=== PATIENT | male | born 2005 | race African-American/Black ===

== ENCOUNTER 2024-11-08 09:07 | Inpatient (IN) | payer OTHER ==
[~2024-11-08] VITALS: Ht 175.3 cm; Wt 57.2 kg
[2024-11-08 09:48] LABS: HEMATOCRIT 44.7 % (42.0-52.0); HEMOGLOBIN 15.3 g/dl (13.5-17.5); MEAN CORPUSCULAR HEMOGLOBIN 31.1 pg (27.0-33.0); MEAN CORPUSCULAR HGB CONC 34.2 g/dl (32.0-36.5); MEAN CORPUSCULAR VOLUME 90.9 fl (80.0-96.0); PLATELET COUNT, AUTOMATED 276 10^3/uL (150-450); RED BLOOD COUNT 4.92 10^6/uL (4.30-6.10); WHITE BLOOD COUNT 3.9 10^3/uL (4.0-10.0)
[2024-11-08 10:24] LABS: ETHYL ALCOHOL (ETHANOL) 0.004 % (0.000-0.010)
[2024-11-08 10:26] LABS: ALBUMIN 4.5 G/DL (3.2-5.2); ALKALINE PHOSPHATASE 77 U/L (40-129); ALT/SGPT 14 U/L (7.0-40); AST/SGOT 28 U/L (<34); BILIRUBIN,DIRECT 0.1 MG/DL (<0.4); BILIRUBIN,TOTAL 0.5 MG/DL (0.3-1.2); BLOOD UREA NITROGEN 15 MG/DL (9-23); CALCIUM LEVEL 9.2 MG/DL (8.5-10.1); CARBON DIOXIDE LEVEL 22 MMOL/L (20-31); CHLORIDE LEVEL 106 MMOL/L (98-107); CREATININE FOR GFR 1.09 MG/DL (0.70-1.30); GLOMERULAR FILTRATION RATE > 90.0 (>60); GLUCOSE, FASTING 106 MG/DL (60-100); POTASSIUM SERUM 5.2 MMOL/L (3.5-5.1); SALICYLATE LEVEL < 3.0 MG/DL (<30); SODIUM LEVEL 139 MMOL/L (136-145); TOTAL PROTEIN 7.6 G/DL (5.7-8.2)
[2024-11-08 10:28] LABS: THYROID STIMULATING HORMONE 0.987 uIU/ML (0.48-4.17)
[2024-11-08 11:29] LABS: AMPHETAMINES LEVEL URINE NEGATIVE (NEGATIVE); BARBITURATES URINE NEGATIVE (NEGATIVE); BENZODIAZEPINES URINE NEGATIVE (NEGATIVE); COCAINE METABOLITE URINE NEGATIVE (NEGATIVE); METHADONE URINE NEGATIVE (NEGATIVE); OPIATES URINE NEGATIVE (NEGATIVE)
[2024-11-08 11:30] LABS: CANNABINOIDS URINE NEGATIVE (NEGATIVE); PHENCYCLIDINE URINE NEGATIVE (NEGATIVE)
[2024-11-08] MEDS ORDERED: HOME MED LIST COMPLETE! XX SCH (11:55)
[2024-11-08] MEDS ORDERED: LORazepam 1 MG TAB PO PRN (12:30)
[2024-11-08] MEDS ORDERED: ACETAMINOPHEN 325 MG TAB PO PRN (12:30)
[2024-11-08] MEDS ORDERED: MAALOX 30 ML SUSP *UDC PO PRN (12:30)
[2024-11-08] MEDS ORDERED: diphenhydrAMINE 25MG CAP PO PRN (12:30)
[2024-11-08] MEDS ORDERED: OLANZapine 5 MG TAB PO PRN (12:30)
[2024-11-08] MEDS ORDERED: MOM 30ML SUSPENSION UDC PO PRN (12:30)
[2024-11-08] MEDS ORDERED: traZODone 50 MG TAB PO PRN (12:30)
[2024-11-08] MEDS: NICOTINE 14 MG/24 HR TRANSDERMAL TD SCH (16:50)
[2024-11-08 18:27] VITALS: BP 132/72; TEMP 97.8; O2SAT 100
[2024-11-09 06:47] VITALS: BP 128/65; TEMP 98; O2SAT 100
[2024-11-09] MEDS: ESCITALOPRAM OXALATE 5 MG PO SCH (14:03)
[2024-11-09 14:55] VITALS: BP 142/82; TEMP 97.6; O2SAT 100
[2024-11-10 06:28] VITALS: BP 110/52; TEMP 98.4; O2SAT 98
[2024-11-10 16:09] VITALS: BP 131/70; TEMP 97.2; O2SAT 100
[2024-11-11 06:56] VITALS: BP 124/59; TEMP 98; O2SAT 99
[2024-11-11] MEDS: ESCITALOPRAM OXALATE 10 MG TAB PO SCH (09:06)
[2024-11-11 15:49] VITALS: BP 132/71; TEMP 97.5; O2SAT 100
[2024-11-12 06:49] VITALS: BP 110/55; TEMP 97.5; O2SAT 99
[2024-11-12] MEDS ORDERED: LEXA1TAB PO (11:54)
== END 2024-11-12 14:00 | disposition home or self-care (01) | DRG 885 ==
LOC: EDBD 09:07 → M ED 09:07 → M ED INP 12:29 → M PSY 14:46
PROVIDERS: ADMIT Internal Medicine; ATTEND Internal Medicine
DX: F33.1 Major depressive disorder, recurrent, moderate (principal); R45.851 Suicidal ideations; F41.1 Generalized anxiety disorder; Z88.6 Allergy status to analgesic agent; E87.5 Hyperkalemia

== ENCOUNTER → 2025-01-17 | Outpatient (CLI) | payer OTHER ==
[~2025-01-17] MED LIST: ALL10TAB3 PO; BREAMIS10 MC; CETI10CH PO; EPIN0.3I11 SC; IBUP200T46 PO; ISOVUE-300 61% 100 ML VIAL As Ordered ONE; LEXA1TAB PO; LEXA1TAB2 PO; LIDOCAINE 1% MDV 20 ML VIAL As Ordered ONE; MEDR4PAK PO; PROHANCE 279.3MG/ML 5ML VIAL As Ordered ONE; VENTAER INH
== END ==
LOC: M RAD 12:39
DX: M25.551 Pain in right hip (principal)
CPT/HCPCS: 27093; 73723; 77002; A9576; Q9967

== ENCOUNTER 2025-01-18 08:56 | Emergency (ER) | payer OTHER ==
[~2025-01-18] VITALS: Ht 175.3 cm; Wt 58.2 kg
[~2025-01-18 08:56] MED LIST changes: -ALL10TAB3 PO; -EPIN0.3I11 SC; -IBUP200T46 PO; -ISOVUE-300 61% 100 ML VIAL As Ordered ONE; -LEXA1TAB2 PO; -LIDOCAINE 1% MDV 20 ML VIAL As Ordered ONE; -MEDR4PAK PO; -PROHANCE 279.3MG/ML 5ML VIAL As Ordered ONE
[2025-01-18] MEDS ORDERED: LEXA1TAB2 PO (09:07)
[2025-01-18] MEDS ORDERED: IBUP200T46 PO (09:07)
[2025-01-18] MEDS ORDERED: MEDR4PAK PO (10:25)
[2025-01-18] MEDS ORDERED: KETOROLAC 30 MG/ML 1 ML VIAL IM ONE (10:25)
[2025-01-18] MEDS ORDERED: VENTAER INH (10:47)
[2025-01-18] MEDS ORDERED: EPIN0.3I11 SC (10:48)
[2025-01-18] MEDS ORDERED: ALL10TAB3 PO (10:48)
[2025-01-18] MEDS ORDERED: HOME MED LIST COMPLETE! XX SCH (10:50)
[2025-01-18 10:54] VITALS: BP 124/72; TEMP 97.3; O2SAT 100
== END 2025-01-18 10:55 | disposition home or self-care (01) ==
LOC: M ED 08:56
DX: S73.191A Other sprain of right hip, initial encounter (principal); X58.XXXA Exposure to other specified factors, initial encounter; J45.909 Unspecified asthma, uncomplicated; Z88.6 Allergy status to analgesic agent; Z91.041 Radiographic dye allergy status; Y92.9 Unspecified place or not applicable; Y93.89 Activity, other specified; Y99.9 Unspecified external cause status; Z79.52 Long term (current) use of systemic steroids; Z79.1 Long term (current) use of non-steroidal anti-inflammatories (NSAID); Z79.899 Other long term (current) drug therapy
CPT/HCPCS: 96372; 99283; J2919

== ENCOUNTER 2025-01-19 00:03 | Emergency (ER) | payer OTHER ==
[~2025-01-19] VITALS: Ht 175.3 cm; Wt 54.5 kg
[~2025-01-19 00:03] MED LIST changes: +ALL10TAB3 PO; +EPIN0.3I11 SC; +IBUP200T46 PO; +LEXA1TAB2 PO; +MEDR4PAK PO
[2025-01-19] MEDS: ACETAMINOPHEN *IV* 1,000 MG in IV 1 EA IV ONE (07:35)
[2025-01-19 07:41] LABS: BASO # 0.0 10^3/uL (0.0-0.2); BASO % 0.6 % (0.0-1.0); EOS # 0.0 10^3/uL (0.0-0.5); EOS % 0.1 % (0.0-3.0); LYMPH # 2.1 10^3/uL (1.5-5.0); LYMPH % 30.3 % (24.0-44.0); MONO # 0.6 10^3/uL (0.0-0.8); MONO % 9.3 % (2.0-8.0); NEUTROPHILS # 4.1 10^3/uL (1.5-8.5); NEUTROPHILS % 59.4 % (36.0-66.0); PLATELET COUNT, AUTOMATED 360 10^3/uL (150-450)
[2025-01-19 07:44] LABS: ERYTHROCYTE SEDIMENTATION RATE 3 mm/hr (0-15)
[2025-01-19 08:28] LABS: C REACTIVE PROTEIN QUANTITATIV < 0.50 MG/DL (<1.0)
[2025-01-19 08:50] LABS: CALCIUM LEVEL 9.5 MG/DL (8.5-10.1); CARBON DIOXIDE LEVEL 23 MMOL/L (20-31); CHLORIDE LEVEL 103 MMOL/L (98-107); CREATININE FOR GFR 0.92 MG/DL (0.70-1.30); GLOMERULAR FILTRATION RATE > 90.0 (>60); POTASSIUM SERUM 4.9 MMOL/L (3.5-5.1); SODIUM LEVEL 139 MMOL/L (136-145)
[2025-01-19 09:27] VITALS: BP 107/70; TEMP 96.9; O2SAT 98
== END 2025-01-19 09:29 | disposition home or self-care (01) ==
LOC: M ED 00:03
DX: M25.551 Pain in right hip (principal); Z88.6 Allergy status to analgesic agent; Z91.048 Other nonmedicinal substance allergy status; Z79.52 Long term (current) use of systemic steroids; Z79.899 Other long term (current) drug therapy; Z79.1 Long term (current) use of non-steroidal anti-inflammatories (NSAID)
CPT/HCPCS: 80048; 85025; 85652; 86140; 96365; 99284; J0131

== ENCOUNTER → 2025-03-15 | Outpatient (CLI) | payer OTHER ==
[~2025-03-15] MED LIST changes: +ISOVUE-300 61% 100 ML VIAL As Ordered ONE; +LIDOCAINE 1% MDV 20 ML VIAL As Ordered ONE; +TRIAMCINOLONE ACETONIDE SUSP 40MG/ML 1ML VIAL As Ordered ONE
== END ==
LOC: M RAD 13:30
PROVIDERS: ATTEND Physician Assistant Surgical
DX: S73.121A Ischiocapsular ligament sprain of right hip, initial encounter (principal); X58.XXXA Exposure to other specified factors, initial encounter; Y92.9 Unspecified place or not applicable
CPT/HCPCS: 20610; 77002; J3301; Q9967

== ENCOUNTER 2025-04-04 23:43 | Emergency (ER) | payer OTHER ==
[~2025-04-04] VITALS: Ht 175.3 cm; Wt 61.5 kg
[~2025-04-04 23:43] MED LIST changes: -ISOVUE-300 61% 100 ML VIAL As Ordered ONE; -LIDOCAINE 1% MDV 20 ML VIAL As Ordered ONE; -TRIAMCINOLONE ACETONIDE SUSP 40MG/ML 1ML VIAL As Ordered ONE
[2025-04-05 01:17] LABS: AMORPHOUS SEDIMENT SMALL (NEGATIVE); APPEARANCE, URINE CLEAR (CLEAR); BACTERIA, URINE AUTO NEGATIVE (NEGATIVE); BILIRUBIN, URINE AUTO NEGATIVE (NEGATIVE); BLOOD, URINE BLOOD NEGATIVE (NEGATIVE); GLUCOSE, URINE (UA) AUTO NEGATIVE (NEGATIVE); KETONE, URINE AUTO NEGATIVE (NEGATIVE); LEUKOCYTE ESTERASE, URINE AUTO NEGATIVE (NEGATIVE); MUCUS, URINE SMALL (NEGATIVE); NITRITE, URINE AUTO NEGATIVE (NEGATIVE); PROTEIN, URINE AUTO NEGATIVE (NEGATIVE); RBC, URINE AUTO 0 /HPF (0-3); SPECIFIC GRAVITY URINE AUTO 1.020 (1.002-1.035); SQUAMOUS EPITHELIAL CELL UR AU 0 /HPF (0-6); UROBILINOGEN, URINE AUTO 0.2 mg/dL (0.0-2.0); WBC, URINE AUTO 0 /HPF (0-3)
[2025-04-05 02:05] LABS: HIV 1&2 SCREEN NEGATIVE (NEGATIVE)
[2025-04-05 02:17] LABS: Trichomonas vaginalis (AMP) NOT DETECTED (NEGATIVE)
[2025-04-05 02:40] LABS: GC DNA AMPLIFICATION NEGATIVE (NEGATIVE)
[2025-04-05 03:22] VITALS: BP 111/59; TEMP 96.5; O2SAT 100
== END 2025-04-05 03:23 | disposition home or self-care (01) ==
LOC: M ED 23:43
DX: N48.89 Other specified disorders of penis (principal); Z88.6 Allergy status to analgesic agent; Z91.041 Radiographic dye allergy status; Z79.52 Long term (current) use of systemic steroids; Z79.1 Long term (current) use of non-steroidal anti-inflammatories (NSAID); Z79.899 Other long term (current) drug therapy

== ENCOUNTER 2025-05-19 14:12 | Emergency (ER) | payer OTHER ==
[~2025-05-19] VITALS: Ht 175.3 cm; Wt 59.7 kg
[2025-05-19] MEDS ORDERED: CEPH500C PO (17:01)
[2025-05-19] MEDS: LIDOCAINE 2% W/EPINEPHrine 20 ML VIAL **PRES FREE INJ ONE (17:04)
[2025-05-19 17:06] VITALS: BP 126/59; TEMP 97.4; O2SAT 100
== END 2025-05-19 17:07 | disposition home or self-care (01) ==
LOC: M ED 14:12
DX: L02.411 Cutaneous abscess of right axilla (principal); Z88.6 Allergy status to analgesic agent